=== PATIENT | female | born 1965 | race Caucasian/White ===

== ENCOUNTER 2022-09-30 15:14 | Outpatient (REF) | payer OTHER, SELFPAY ==
[2022-09-30 18:47] LABS: Influenza A PCR NEGATIVE (Negative); Influenza B PCR NEGATIVE (Negative); Resp Syncy Virus RNA Qual PCR NEGATIVE (Negative); SARS COV2 PCR INHOUSE NEGATIVE (Negative)
== END 2022-09-30 15:15 | disposition home or self-care (01) ==
LOC: HO.LAB 15:14
PROVIDERS: Visit Provider Physician Assistant Medical
DX: J06.9 Acute upper respiratory infection, unspecified (principal); Z20.822 Contact with and (suspected) exposure to COVID-19
CPT/HCPCS: 0241U

== ENCOUNTER 2024-04-08 19:15 | Emergency (ER) | payer MEDICARE, SELFPAY ==
--- NOTE | ~2024-04-08 | XR_ITS ---
CLINICAL HISTORY: pain 2 view chest x-ray Comparison: None Findings: No consolidation, pleural effusion or pneumothorax. Heart size is normal. Old appearing fractures in left ribs 7, 8 and 9. IMPRESSION: No acute cardiopulmonary process. This document has been electronically signed by: Aislinn Elmore DO on 04/08/2024 20:45:15
[2024-04-08 19:20] VITALS: BP 138/81; PULSE 65; O2SAT 100
[2024-04-08 20:02] VITALS: BP 126/75; PULSE 71; RESP 20; TEMP 37.6; O2SAT 99; BMI 23.3
--- NOTE | 2024-04-08 20:03 | ED_ITS ---
HPI - General Adult General Chief complaint: General Medical Stated complaint: upper respiratory issues x10 days Time Seen by Provider: 04/09/24 01:03 Source: patient Limitations: no limitations History of Present Illness ED Provider: Silva Calvillo PA-C HPI narrative: 58-year-old female presents with viral symptoms for 10 days. Her symptoms acutely worsened over the past few days. Associated intense headache, earache, sinus congestion, neck stiffness and generalized myalgias and fever. Patient is seen at urgent care and they advised she come for assessment given they were concerned for meningitis. Related Data Home Medications ?Medication ?Instructions ?Recorded ?Confirmed buspirone 5 mg tablet 5 mg PO BID 09/30/22 escitalopram oxalate 20 mg tablet 20 mg PO DAILY 09/30/22 gabapentin 300 mg capsule 300 mg PO TID 09/30/22 Allergies Allergy/AdvReac Type Severity Reaction Status Date / Time lorazepam [From Ativan] Allergy Severe Hallucinati Verified 04/08/24 20:04 ons Review of Systems 2 Review of Systems: Yes all other systems are reviewed and are negative Constitutional: Constitutional: Reports fatigue, Reports fever(s), Reports headache(s) and Reports malaise ENT: Reports otalgia, Reports headache(s), Reports nasal congestion, Reports neck pain and Reports sinus pain Cardiovascular: Cardiovascular: Denies chest pain and Denies dyspnea Respiratory: Respiratory: Denies cough and Denies dyspnea Gastrointestinal: Gastrointestinal: Denies nausea and Denies vomiting Musculoskeletal: Musculoskeletal: Reports neck pain Neurologic: Reports headache(s) Endocrine: Endocrine: Reports fatigue PMFSH Past Medical History Attestation statement: The following information was validated with the patient. Social History Social History Patient Tobacco Use Status: Never used Tobacco Advance Directives: No Advance Directives Information Provided: No Do you have a plan to hurt others: No Plan Physical Exam ED Vital Signs: Vital Signs - 24 hr 04/08/24 20:02 04/09/24 01:54 Temperature 99.6 F 0 F L Pulse Rate 71 68 Respiratory Rate 20 16 Blood Pressure 126/75 124/72 Pulse Oximetry 99 99 Oxygen Delivery Method Room Air Room Air BMI result Body Mass Index 23.3 Const Other: Alert, well-appearing Orientation/consciousness: patient oriented x3 HENMT Other: Sounds congested, eyes are watery Eyes Other: Watery eye Neck Other: Soft supple full range of motion no meningeal signs Resp Effort & Inspection: normal respiratory effort Cardio Other: Normal peripheral perfusion Skin Other: Warm general rash Neuro General: patient oriented x3, no focal motor deficits and CN's II-XI intact bilaterally Psych Other: Calm cooperative Course Course Course Narrative: RME, this is a rapid medical exam performed by Selvin Hatch please refer to primary provider for complete H&P- 58-year-old female presents for evaluation of cough, congestion, ear pain, headache and body aches. Plan for viral swabs, labs, chest x-ray Medications Administered Discontinued Medications Generic Name Dose Route Start Last Admin Trade Name Freq PRN Reason Stop Dose Admin Acetaminophen 975 mg 04/09/24 01:40 04/09/24 01:49 Acetaminophen 325 Mg Tablet PO 04/09/24 01:41 975 mg ONCE ONE Administration Ibuprofen 600 mg 04/09/24 01:40 04/09/24 01:49 Ibuprofen 600 Mg Tablet PO 04/09/24 01:41 600 mg ONCE ONE Administration Medical Decision Making Medical Decision Making [facility] Narrative: 58-year-old female presents with viral symptoms for 10 days. Her symptoms acutely worsened over the past few days. Associated intense headache, earache, sinus congestion, neck stiffness and generalized myalgias and fever. Patient is seen at urgent care and they advised she come for assessment given they were concerned for meningitis. No chronic issues History: Per patient I have considered the following differential diagnoses: Viral syndrome, pneumonia, meningitis, otitis media, Plan: Patient here with broad constellation of symptoms. This is not meningitis, she has no meningeal signs on exam she is not altered, furthermore she has had symptoms for an extended period of time. Screening labs including a viral panel and chest x-ray were obtained from triage. I have independently reviewed the following tests: Labs: No leukocytosis, not anemic, no electrolyte abnormality, viral panel positive for influenza A IMPRESSION: No acute cardiopulmonary process. This document has been electronically signed by: Aislinn Elmore DO on 04/08/2024 20:45:15 Lab Data 04/08/24 20:21 04/08/24 20:21 Labs: Lab Results 04/08/24 Range/Units 20:21 WBC 4.3 L (4.8-10.8) X10*3/uL RBC 4.06 L (4.20-5.50) X10*6/uL Hgb 11.2 L (12.0-16.0) g/dl Hct 33.9 L (37.0-47.0) % MCV 83.5 (80.0-98.0) fL MCH 27.6 (27.0-33.0) pg MCHC 33.0 (31.0-35.0) g/dl RDW 15.9 (11.0-16.0) % Plt Count 326 (160-400) X10*3/uL MPV 9.8 (9.4-12.3) fL Immature Gran % (Auto) Cancelled Neut % (Auto) Cancelled Lymph % (Auto) Cancelled [place] % (Auto) Cancelled Eos % (Auto) Cancelled Baso % (Auto) Cancelled Lymph # (Auto) Cancelled [place] # (Auto) Cancelled Eos # (Auto) Cancelled Baso # (Auto) Cancelled Abs Immat Gran (auto) Cancelled Absolute Neuts (auto) Cancelled Absolute Nucleated RBC 0.000 (0.0-0.012) X10*3/uL Nucleated RBC % (auto) 0.0 (0.0-0.2) /100WBC Neutrophils % (Manual) 2 L (45-73) % Band Neutrophils % 0 L (3-5) % Lymphocytes % (Manual) 58 H (20-40) % Atypical Lymphs % (Man) 28 H (0-6) % Monocytes % (Manual) 12 H (2-11) % Abs Neuts (Manual) 0.1 L (2.0-8.3) X10*3/uL Lymphocytes # (Manual) 2.5 (1.2-4.9) X10*3/uL Atyp Lymphs # (Manual) 1.2 x10*3/uL Monocytes # (Manual) 0.5 (0.1-1.2) X10*3/uL Platelet Estimate NORMAL (NORMAL) Plt Morphology Comment NORMAL RBC Morphology NOTED Ovalocytes 1+ (5-14) /OIF Schistocytes 1+ (0-2) /OIF Smear Tech's Comments MANUAL DIFF Sodium 138 (135-145) mmol/L Potassium 4.0 (3.3-5.1) mmol/L Chloride 103 (96-108) mmol/L Carbon Dioxide 25 (22-29) mmol/L Anion Gap 14 (12-20) BUN 18 H (9-16) mg/dL Creatinine 0.69 (0.5-1.4) mg/dL Estim Creat Clear Calc 80.9 Estimated GFR > 60 Random Glucose 103 (60-115) mg/dL Calcium 8.8 (8.4-10.2) mg/dL Total Bilirubin 0.3 (0.0-1.0) mg/dL AST 24 (5-31) U/L ALT 13 (0-31) U/L Alkaline Phosphatase 53 (39-117) U/L Total Protein 6.7 (6.5-8.0) g/dL Albumin 4.2 (3.5-5.0) g/dL Lipase 14 (8-78) U/L Influenza Type A (PCR) POSITIVE A (Negative) Influenza Type B (PCR) NEGATIVE (Negative) RSV RNA Qual (PCR) NEGATIVE (Negative) SARS-CoV-2 RNA (RT-PCR) NEGATIVE (Negative) Discharge Plan Discharge Clinical Impression: Influenza A Patient Disposition: Home, Self-Care Instructions: Influenza (ED) Additional Instructions: You tested positive for influenza A. See home care instructions. For headaches, body aches and fever, you can use 1000 mg of Excedrin tension headache taken every 8 hours, with [id number] ibuprofen 600 mg taken every 6 hours with food. The chest x-ray was negative for pneumonia, you had no additional lab abnormalities. Follow up with your primary care provider as needed. Prescriptions: No Action buspirone 5 mg tablet 5 mg PO BID escitalopram oxalate 20 mg tablet 20 mg PO DAILY gabapentin 300 mg capsule 300 mg PO TID Interventions: ED Discharge Assessment Last Done: 04/09/24 01:54 Discharge Date/Time: 04/09/24 01:55 Print Language: Sinhala
[2024-04-08 20:40] LABS: Hematocrit 33.9 % (37.0-47.0); Hemoglobin 11.2 g/dl (12.0-16.0); Mean Corpuscular Hemoglobin 27.6 pg (27.0-33.0); Mean Corpuscular Volume 83.5 fL (80.0-98.0); Mean Platelet Volume 9.8 fL (9.4-12.3); Platelet Count 326 X10*3/uL (160-400); Red Blood Count 4.06 X10*6/uL (4.20-5.50); Red Cell Distribution Width 15.9 % (11.0-16.0); White Blood Count 4.3 X10*3/uL (4.8-10.8)
[2024-04-08 20:45] LABS: Alanine Aminotransferase 13 U/L (0-31); Albumin Level 4.2 g/dL (3.5-5.0); Alkaline Phosphatase 53 U/L (39-117); Anion Gap 14 (12-20); Aspartate Amino Transferase 24 U/L (5-31); Bilirubin Total 0.3 mg/dL (0.0-1.0); Blood Urea Nitrogen 18 mg/dL (9-16); Calcium 8.8 mg/dL (8.4-10.2); Carbon Dioxide 25 mmol/L (22-29); Chloride 103 mmol/L (96-108); Creatinine Clr Calc Pharmacy 80.9; Estimated Glomerular Filt Rate > 60; Glucose Random 103 mg/dL (60-115); Lipase 14 U/L (8-78); Sodium 138 mmol/L (135-145); Total Protein 6.7 g/dL (6.5-8.0)
[2024-04-08 20:49] LABS: SLIDE REVIEW MANUAL DIFF
[2024-04-08 21:05] LABS: Influenza A PCR POSITIVE (Negative); Influenza B PCR NEGATIVE (Negative); Resp Syncy Virus RNA Qual PCR NEGATIVE (Negative); SARS COV2 PCR INHOUSE NEGATIVE (Negative)
[2024-04-08 21:15] LABS: Atypical Lymph Absolute Manual 1.2 x10*3/uL; Atypical Lymphs Percent Manual 28 % (0-6); Band Neutrophils Percent 0 % (3-5); Lymphocytes Absolute Manual 2.5 X10*3/uL (1.2-4.9); Lymphocytes Percent Manual 58 % (20-40); Monocytes Absolute Manual 0.5 X10*3/uL (0.1-1.2); Monocytes Percent Manual 12 % (2-11); Neutrophils Absolute Manual 0.1 X10*3/uL (2.0-8.3); Neutrophils Percent Manual 2 % (45-73); RBC Morphology NOTED
[2024-04-08 21:16] LABS: Ovalocytes 1+ (5-14) /OIF; Schistocytes 1+ (0-2) /OIF
[2024-04-08 21:17] LABS: Platelet Estimate NORMAL (NORMAL); Platelet Morphology Comment NORMAL
[2024-04-09] MEDS: Acetaminophen 325 MG TABLET 975 MG PO (01:49)
[2024-04-09] MEDS: Ibuprofen 600 MG TABLET PO (01:49)
[2024-04-09 01:54] VITALS: BP 124/72; PULSE 68; RESP 16; TEMP -17.7; TEMP 0; O2SAT 99
== END 2024-04-09 01:55 | disposition home or self-care (01) ==
PROVIDERS: Physician Assistant; Emergency Provider Emergency Medicine; PCP Nurse Practitioner
DX: J10.1 Influenza due to other identified influenza virus with other respiratory manifestations (principal); R51.9 Headache, unspecified; H92.09 Otalgia, unspecified ear; M43.6 Torticollis; R50.9 Fever, unspecified; R09.81 Nasal congestion; Z79.899 Other long term (current) drug therapy; Z03.818 Encounter for observation for suspected exposure to other biological agents ruled out
CPT/HCPCS: 0241U; 71046; 80053; 83690; 85007; 85027; 99283

== ENCOUNTER → 2024-04-08 20:03 | Outpatient (BNV) | payer MEDICARE, SELFPAY | PROVIDERS: PCP Nurse Practitioner; Visit Provider Radiology Diagnostic Radiology | DX: R07.9 Chest pain, unspecified (principal) | CPT/HCPCS: 71046 ==